=== PATIENT | male | born 2000 | race Caucasian/White ===

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

== ENCOUNTER → 2025-08-15 11:42 | Outpatient (REF) | payer OTHER, SELFPAY ==
--- NOTE | 2025-08-15 11:42 | S_PTH ---
PATIENT: Jules Mason LOC: [facility] U#:[id number] AGE/SX: 24/M ROOM: RE08/15/[address]: Adonis Ojeda MD : 2000 BED: DIS: SPEC #: [id number] RECD: 08/15/25 12:39 STATUS: TOM EASLEY #: [id number] KORIN: 08/15/25 11:[address]: Adonis Ojeda DEPT: [facility] Surgical RECD BY: Mela Murguia ENTERED: 08/15/25 12:39 SP TYPE: Surgical OTHR DR: Marleny Blanca, PAFilemonC Tissues: A - Skin Procedures: Hematoxylin and Eosin Stain Gross and Microscopic Level 4
== END ==
LOC: ANHLAB 11:42
PROVIDERS: PCP Physician Assistant; Visit Provider Plastic Surgery
DX: D48.5 Neoplasm of uncertain behavior of skin (principal)
CPT/HCPCS: 88305